=== PATIENT | male | born 1990 | race Caucasian/White ===

== ENCOUNTER 2022-11-17 06:26 | Emergency (ER) | payer BC ==
[~2022-11-17] VITALS: Ht 170.2 cm; Wt 115.0 kg
[2022-11-17 06:33] VITALS: BP 150/103; PULSE 95; RESP 14; TEMP 98.2; O2SAT 98
== END 2022-11-17 12:18 | disposition left against medical advice (07) ==
LOC: ER 06:26
DX: Z53.21 Procedure and treatment not carried out due to patient leaving prior to being seen by health care provider (principal)
CPT/HCPCS: 99281